=== PATIENT | male | born 1990 | race Hispanic/Latino ===

== ENCOUNTER 2018-06-09 13:03 | Emergency (ER) | payer MEDICAID, OTHER ==
--- NOTE | 2018-06-09 14:58 | RAD ---
Date of service: 06/09/2018 PROCEDURE: Right Foot Radiographs. HISTORY: Pain COMPARISON: None. FINDINGS: BONES: Bone alignment and mineralization are normal. There is no acute displaced fracture or bone destruction. JOINTS: Normal. SOFT TISSUES: Normal. OTHER FINDINGS: None. IMPRESSION: No acute fracture or dislocation.
--- NOTE | 2018-06-09 15:22 | RAD ---
Date of service: 06/09/2018 PROCEDURE: Right Ankle Radiographs. HISTORY: Ankle pain COMPARISON: None FINDINGS: BONES: There is an age indeterminate nondisplaced fracture in the navicular. . JOINTS: Normal. Ankle mortise maintained. Talar dome intact SOFT TISSUES: Mild soft tissue swelling overlying the navicular. OTHER FINDINGS: None. IMPRESSION: Age indeterminate nondisplaced fracture in the navicular. Mild overlying soft tissue swelling.
--- NOTE | 2018-06-09 16:31 | ED PDOC ---
Arrival/HPI - General Historian: Patient - General Chief Complaint: Lower Extremity Problem/Injury Time Seen by Provider: 06/09/18 13:28 - History of Present Illness Narrative History of Present Illness (Text): 06/09/18 18:50 27-year-old male presents today with right ankle pain since last night. Patient denies any trauma or injury. Patient denies fevers or chills. Patient states he has stiffness in the right ankle with swelling over the lateral malleolus. Patient denies numbness weakness or tingling in the extremity. Denies calf pain. No medications have been taken for pain at home. No other complaints ( Laurence Ozuna) Past Medical History - Provider Review Nursing Documentation Reviewed: Yes - Travel History Have you recently traveled outside [place] w/in the past 3 mons?: No - Infectious Disease Hx of Infectious Diseases: None - Psychiatric Hx Substance Use: No - Surgical History Hx Orthopedic Surgery: Yes - Anesthesia Hx Anesthesia: Yes Hx Anesthesia Reactions: No Family/Social History - Physician Review Nursing Documentation Reviewed: Yes Family/Social History: Unknown Family HX Smoking Status: Unknown If Ever Smoked Hx Alcohol Use: Yes Frequency of alcohol use: Socially Hx Substance Use: No Allergies/Home Meds Allergies/Adverse Reactions: Allergies Penicillins Allergy (Verified 06/09/18 13:22) RASH Review of Systems - Review of Systems Constitutional: absent: Fatigue, Fevers Respiratory: absent: SOB, Cough Cardiovascular: absent: Chest Pain, Palpitations Gastrointestinal: absent: Abdominal Pain, Nausea, Vomiting Musculoskeletal: Arthralgias. absent: Back Pain, Neck Pain Skin: absent: Rash, Pruritis Neurological: absent: Headache, Dizziness Psychiatric: absent: Anxiety, Depression Physical Exam Vital Signs Reviewed: Yes Temperature: Afebrile Blood Pressure: Normal Pulse: Regular Respiratory Rate: Normal Appearance: Positive for: Well-Appearing, Non-Toxic, Comfortable Pain Distress: None Mental Status: Positive for: Alert and Oriented X 3 - Systems Exam Head: Present: Atraumatic Mouth: Present: Moist Mucous Membranes Neck: Present: Normal Range of Motion Respiratory/Chest: Present: Clear to Auscultation, Good Air Exchange. No: Respiratory Distress, Accessory Muscle Use, Wheezes Cardiovascular: Present: Regular Rate and Rhythm Lower Extremity: Present: NORMAL PULSES, Normal ROM (stiff full rom of ankle. no erythema; + edema over lateral malleous; sensation and distal pulses intact; cap refill <2. ), Tenderness, Swelling, Neurovascularly Intact, Capillary Refill < 2 s. No: CALF TENDERNESS, Erythema, Deformity Neurological: Present: GCS=15, Speech Normal Skin: Present: Warm, Dry, Normal Color. No: Rashes Psychiatric: Present: Alert, Oriented x 3 Vital Signs Temp Pulse Resp BP Pulse Ox 06/09/18 21:30 98.2 F 82 18 124/76 98 06/09/18 20:11 98.0 F 68 20 120/68 96 06/09/18 13:20 99.7 F H 95 H 18 125/83 97 Medical Decision Making Reassessment Condition: Re-examined, Improved ED Course and Treatment: 06/09/18 16:30 Patient nontoxic well-appearing in no distress with stable vital signs X-rays of the right ankle; FINDINGS: BONES: There is an age indeterminate nondisplaced fracture in the navicular. . JOINTS: Normal. Ankle mortise maintained. Talar dome intact SOFT TISSUES: Mild soft tissue swelling overlying the navicular. OTHER FINDINGS: None. IMPRESSION: Age indeterminate nondisplaced fracture in the navicular. Mild overlying soft tissue swelling. Xray of the right foot: FINDINGS: BONES: Bone alignment and mineralization are normal. There is no acute displaced fracture or bone destruction. JOINTS: Normal. SOFT TISSUES: Normal. OTHER FINDINGS: None. IMPRESSION: No acute fracture or dislocation. toradol IM pt was seen and evaluated by dr. mcmillan at [facility]. dr. bowers performed joint aspiration. synovial fluid; wbcs; 27.5 cbc; wnl cmp; wnl sed rate; 18 will send GC/chlamdyia cultures; pt without any urinary symptoms. all results discussed with dr. bowers; advised d/c home and f/u in his office on tuesday. Patient placed in short leg posterior splint crutches given for ambulation. ct of foot ordered. I discussed all results in depth with the patient advised to followup with the orthopedist within the next 2 days. Advised return if symptoms worsen persist or new symptoms develop. pt was advised immediate return if signs of infection develop; high fevers, increasing pain, Patient verbalizes understanding of discharge instructions and need for immediate followup. all aspects of this case were discussed the attending of record. Impression: Ankle pain Motrin every 6 hours as needed for pain Rest, ice, compression, elevation Use crutches for ambulation Followup with the orthopedist within the next 2 days Followup with primary care physician within the next 2 days Return if symptoms worsen persist or if new symptoms develop; high fevers, increasing pain or if any other concerning symptoms develop. (Laurence Ozuna) - Lab Interpretations Lab Results: 06/09/18 18:15 06/09/18 18:15 Lab Results 06/09/18 18:44: Fluid Type Synovial fluid, Synovial WBC 27.5, Synovial RBC 61.6 H, Synovial Neutrophils 86.4 H, Synovial Lymphocytes 13.6 H, Synov Monos/ Macrophage 2 H, Synovial Fluid Comment Light yellow 06/09/18 18:15: WBC 9.5, RBC 5.33, Hgb 15.1, Hct 43.6, MCV 81.8, MCH 28.3, MCHC 34.6, RDW 13.3, Plt Count 312, MPV 10.9, Gran % 60.7, Lymph % (Auto) 26.9, [place] % (Auto) 9.3 H, Eos % (Auto) 2.8, Baso % (Auto) 0.3, Gran # 5.78, Lymph # (Auto ) 2.6, [place] # (Auto) 0.9 H, Eos # (Auto) 0.3, Baso # (Auto) 0.03 06/09/18 18:15: Sodium 142, Potassium 4.0, Chloride 104, Carbon Dioxide 26, Anion Gap 17, BUN 11, Creatinine 1.0, Est GFR ( Amer) > 60, Est GFR (Non- Af Amer) > 60, Random Glucose 103, Calcium 9.4, Total Bilirubin 0.4, AST 20, ALT 33, Alkaline Phosphatase 85, Total Protein 7.9, Albumin 4.4, Globulin 3.5, Albumin/Globulin Ratio 1.2 06/09/18 18:15: ESR 18 H - RAD Interpretation Radiology Orders: 06/09/18 13:57 ANKLE RIGHT 3 VIEWS ROUTINE [RAD] Stat FOOT RIGHT 3 VIEWS ROUTINE [RAD] Stat 06/09/18 21:24 EXT LOWER W/O CONTRAST RIGHT [CT] Stat - Medication Orders Current Medication Orders: Discontinued Medications Ketorolac Tromethamine (Toradol) 60 mg IM STAT STA Stop: 06/09/18 13:29 Last Admin: 06/09/18 14:41 Dose: 60 mg MAR Pain Assessment Document 06/09/18 14:41 CA (Rec: 06/09/18 14:43 [id number] Pain Reassessment Is this a pain reassessment? No Sleep Is patient sleeping during reassessment? No Presence of Pain Presence of Pain Yes Pain Scale Used Pain Scale Used Numeric Location Left, Right or Bilateral Right Pain Location Body Site Ankle Description Description Constant Intensity of Pain at present 7 Acceptable Level of Pain 0 IM Administration Charges Document 06/09/18 14:41 [place] (Rec: 06/09/18 14:43 [id number]) Injection Site MAR Injection Site Right Gluteus Harvey Charges for Administration # of IM Administrations 1 Procedures - Splinting Location: right foot Hand-Made Type: fiberglass Splint: posterior short leg splint Pre-Proc Neuro Vasc Exam: normal Post-Proc Neuro Vasc Exam: normal Disposition/Present on Arrival - Present on Arrival Any Indicators Present on Arrival: No History of DVT/PE: No History of Uncontrolled Diabetes: No Urinary Catheter: No History of Decub. Ulcer: No History Surgical Site Infection Following: None - Disposition Have Diagnosis and Disposition been Completed?: Yes Disposition Time: 21:33 Patient Plan: Discharge - Disposition Diagnosis: Ankle pain, Foot fracture Disposition: HOME/ ROUTINE Condition: GOOD Discharge Instructions (ExitCare): Foot Fracture (DC) Additional Instructions: Motrin every 6 hours as needed for pain Rest, ice, compression, elevation Use crutches for ambulation Followup with the orthopedist within the next 2 days Followup with primary care physician within the next 2 days Return if symptoms worsen persist or if new symptoms develop; high fevers, increasing pain or if any other concerning symptoms develop. Prescriptions: Ibuprofen [Motrin] 600 mg PO Q6H PRN #20 tab PRN Reason: pain/fever reduction Referrals: [facility] [Outside] - Follow up with primary Valentino Bowers DO [Staff Provider] - Follow up with primary Keerthi Coyle MD [Medical Doctor] - Follow up with primary [facility] [Outside] - Follow up with primary Forms: [employer] (Welsh), WORK NOTE
[2018-06-09 18:34] LABS: BASO # 0.03 K/mm3 (0.0-2.0); BASO % 0.3 % (0.0-3.0); EOS # 0.3 (0.0-0.7); EOS % 2.8 % (1.5-5.0); GRAN # 5.78 (1.4-6.5); GRAN % 60.7 % (50.0-68.0); HEMOGLOBIN 15.1 g/dL (14.0-18.0); LYMPH # 2.6 (1.2-3.4); LYMPH % 26.9 % (22.0-35.0); MEAN CELL VOLUME 81.8 fl (80.0-105.0); MEAN CORPUSCULAR HEMOGLOBIN 28.3 pg (25.0-35.0); MEAN CORPUSCULAR HGB CONC 34.6 g/dl (31.0-37.0); MEAN PLATELET VOLUME 10.9 fl (7.0-11.0); MONO # 0.9 (0.1-0.6); MONO % 9.3 % (1.0-6.0); RBC 5.33 10^6/uL (3.5-6.1); RED CELL DISTRIBUTION WIDTH 13.3 % (11.5-14.5); WHITE BLOOD COUNT 9.5 10^3/ul (4.5-11.0)
[2018-06-09 18:38] LABS: ALB/GLOB RATIO 1.2 (1.1-1.8); ALBUMIN 4.4 g/dL (3.0-4.8); ALT/SGPT 33 U/L (7-56); AST/SGOT 20 U/L (17-59); BLOOD UREA NITROGEN 11 mg/dL (7-21); CALCIUM 9.4 mg/dL (8.4-10.5); GFR AFRICAN-AMERICAN > 60; GFR NON-AFRICAN AMERICAN > 60
[2018-06-09 18:47] LABS: FLUID TYPE SYNOVIAL FLUID
[2018-06-09 21:07] LABS: SF GROSS APPEARANCE CLOUDY (CLEAR)
[2018-06-09 21:08] LABS: SYNOVIAL FLUID COMMENT LIGHT YELLOW
[2018-06-09 21:32] LABS: SYNOVIAL FLUID MONO/MACROPHAGE 2 % (0-0)
[2018-06-09 22:30] VITALS: BP 124/76; PULSE 82; RESP 18; TEMP 98.2; O2SAT 98
--- NOTE | 2018-06-10 05:48 | CON ---
Copied To: Valentino Flores DO Attending MD: Valentino Flores DO DATE: 06/09/2018 ORTHOPEDIC CONSULT AND PROCEDURE REPORT HISTORY OF PRESENT ILLNESS: A 27-year-old male with right ankle pain with effusion. Because of the pain in the right ankle, he is able to dorsiflex and plantar-flex there low chance of a septic joint has got a tense effusion of the right ankle. So, we aspirated the ankle, prepping with alcohol, and it was bloating on the lateral portion anteriorly better. So, we numbed the skin with Marcaine and put an 18 gauge needle with 10 mL syringe and took out 7 mL of turbid drainage fluid and sent it for cell count, culture, and crystals and injected with Depo-Medrol and Marcaine. It looks like an inflammatory arthritis suspicious for gout and this does not appear to be any fracture of the right ankle or foot. If patient does not improve, he can give me a call and see me in the office unless he finds a Medicaid doctor. Valentino Flores DO MTDKristian
--- NOTE | 2018-06-12 11:04 | CT ---
Date of service: 06/09/2018 PROCEDURE: CT of the right foot without contrast HISTORY: right foot pain/ right foot fx on xray COMPARISON: Ankle x-ray 06/09/2018 TECHNIQUE: Radiation dose: Total exam DLP = 437 mGy-cm. This CT exam was performed using one or more of the following dose reduction techniques: Automated exposure control, adjustment of the mA and/or kV according to patient size, and/or use of iterative reconstruction technique. FINDINGS: There is no evidence of an acute fracture of the navicular. There is a chronic appearing fracture deformity and degenerative change. There is fluid in the flexor hallucis longus tendon sheath consistent with tenosynovitis. Air is seen within the sheath related to recent procedure. Air locules are also noted anterior to the ankle joint. The report concurs with the preliminary [facility] report IMPRESSION: Johanny synovitis of the flexor hallucis longus tendon. No evidence of acute fracture
== END 2018-06-09 21:45 | disposition home or self-care (01) ==
LOC: ED 13:03
DX: M25.571 Pain in right ankle and joints of right foot (principal); S92.901A Unspecified fracture of right foot, initial encounter for closed fracture; X58.XXXA Exposure to other specified factors, initial encounter
CPT/HCPCS: 20605; 73610; 73630; 73700; 80053; 85025; 85651; 87070; 87491; 87591; 89051; 89060; 96372; 99284; J1885